=== PATIENT | female | born 1980 | race Caucasian/White ===

== ENCOUNTER → 2016-11-24 | Outpatient (CLI) | payer OTHER ==
[~2016-11-24] MED LIST: OPTIRAY 320 IV PRN
--- NOTE | 2016-11-24 18:19 | DIAGNOSTIC IMAGING REPORT ---
CT SCAN OF THE ABDOMEN AND PELVIS WITH IV CONTRAST CLINICAL HISTORY: Right lower quadrant abdominal pain. COMPARISON STUDY: No priors. TECHNIQUE: Following the IV administration of 120 cc of Optiray 320, CT scan of the abdomen and pelvis is performed from the lung bases to the proximal femora. Images are reviewed in the axial, sagittal, and coronal planes. IV contrast was administered without complication. Automated dose control exposure was utilized. A dose lowering technique was utilized adhering to the principles of ALARA. CT DOSE: 1984.20 mGy.cm FINDINGS: Lung bases: The heart is normal in size and without pericardial effusion. The lung bases are clear. Liver: The contrast-enhanced liver is enlarged, measuring 24 cm in length. The liver demonstrates diffusely diminished attenuation consistent with hepatic steatosis. There is no intrahepatic biliary ductal dilatation. The hepatic veins and portal veins are patent. Gallbladder: Surgically absent noting clips in the gallbladder fossa. Spleen: Enlarged, measuring 17 cm in length. Pancreas: Unremarkable. Adrenal glands: Unremarkable. Kidneys: The contrast enhanced kidneys are normal in size and without hydronephrosis. The kidneys enhance symmetrically. Abdominal vasculature: The abdominal aorta is normal in course and caliber. Bowel: The small bowel and colon are normal in course and caliber. The appendix is well visualized and normal. Peritoneum: There is no intraperitoneal free air or abdominal ascites. Lymphadenopathy: None. Pelvic viscera: The bladder, uterus, and adnexa are normal as visualized. Ovarian follicles are noted. Skeletal structures: No lytic or blastic lesions are seen. Sclerotic change is seen in the pubic symphysis. IMPRESSION: 1. There are no acute infectious or inflammatory findings in the abdomen or pelvis. 2. Hepatomegaly and hepatic steatosis. 3. Splenomegaly. 4. Additional findings as above. Electronically signed by: Bowen Saeed M.D. 11/24/2016 6:17 PM Dictated Date/Time: 11/24/2016 6:07 PM
== END | disposition home or self-care (01) ==
LOC: C.CTS 15:44
PROVIDERS: ATTEND Family Medicine
DX: R10.31 Right lower quadrant pain (principal)

== ENCOUNTER 2017-07-05 19:41 | Emergency (ER) | payer OTHER ==
[~2017-07-05] VITALS: Ht 175.3 cm; Wt 134.2 kg
[2017-07-05 19:44] VITALS: TEMP 37.2; Ht 175.3 cm; Wt 134.2 kg
[2017-07-05] MEDS ORDERED: ONDANSETRON INJ 2 MG/ML 2 ML VIAL IV STA (19:54)
[2017-07-05] MEDS ORDERED: SODIUM CHLORIDE 0.9% 1000ML 1,000 ML IV STA ×2 (19:54→20:01)
--- NOTE | 2017-07-05 20:02 | EMERGENCY ROOM VISIT NOTE ---
History Report prepared by Walt: Isabel Montaño Under the Supervision of: Dr. Jase Valenzuela M.D. First contact with patient: 19:49 Chief Complaint: OTHER COMPLAINT Stated Complaint: PAIN, BLOOD IN STOOL History of Present Illness The patient is a 36 year old female who presents to the Emergency Room with complaints of blood in her stool beginning at 1630 this afternoon. The patient reports that she had another episode of blood in her stool 45 minutes prior to arrival. The patient states that she called her doctor's office and was seen and had blood work ordered for tomorrow. She states that she was referred here from her doctor's office since she had 2 episodes. She states that she just did a 14 day course of levofloxacin for a sinus infection. She reports having nausea , fatigue, and headaches, but denies vomiting, fevers, and chills. The patient reports a history of a cholecystectomy at the age of 19 and states that since then she has not had normal stool. The patient reports that her menstrual period ended 5 days ago. She reports a history of hypertension. The patient reports that her cousin had colon cancer. Source of History: patient Onset: 1630 this afternoon Position: other (rectum) Quality: other (blood in stool) Associated Symptoms: + headache, + nausea, + fatigue, No fevers, No chills, No vomiting Review of Systems See HPI for pertinent positives and negatives. A total of ten systems were reviewed and were otherwise negative. Past Medical & Surgical Medical Problems: (1) Hypertension Surgical Problems: (1) History of cholecystectomy Family History FH: colon cancer Social History Smoking Status: Current Every Day Smoker Marital Status: Current/Historical Medications Scheduled Azelastine Hcl (Astepro), 2 SPRY RACHNA DAILY Fluticasone Propionate (Nasal) (Flonase Allergy Relief), 2 SPRAYS RACHNA QPM Losartan Potassium (Cozaar), 50 MG PO DAILY Montelukast Sodium (Singulair), 10 MG PO DAILY Ondasetron Odt (Zofran Odt), 4 MG SL Q6H Scheduled PRN Acetaminophen/Diphenhydramine (Tylenol Pm), 2 TAB PO HS PRN for Sleep Ibuprofen (Advil), 800 MG PO DAILY PRN for Pain or Fever Lorazepam (Ativan), 1 MG PO DAILY PRN for Anxiety Allergies Coded Allergies: No Known Allergies (Unverified , 07/05/17) Physical Exam Vital Signs Date Time Temp Pulse Resp B/P (MAP) Pulse Ox O2 Delivery O2 Flow Rate FiO2 07/05/17 22:42 94 20 160/113 97 07/05/17 21:35 101 20 162/105 98 Room Air 07/05/17 20:30 104 20 170/115 96 Room Air 07/05/17 19:44 37.2 112 20 217/122 98 Room Air Physical Exam GENERAL: Awake, alert, well-appearing, in no distress HENT: Normocephalic, atraumatic. Dry mucous membranes, otherwise oropharynx unremarkable. EYES: Normal conjunctiva. Sclera non-icteric. NECK: Supple. No nuchal rigidity. FROM. No JVD. RESPIRATORY: Clear to auscultation. CARDIAC: Regular rate, normal rhythm. Extremities warm and well perfused. Pulses equal. ABDOMEN: Soft, non-distended. No tenderness to palpation. No rebound or guarding. No masses. RECTAL: No external hemorrhoids. Brown stool, guaiac negative. MUSCULOSKELETAL: Chest examination reveals no tenderness. The back is symmetrical on inspection without obvious abnormality. There is no CVA tenderness to palpation. No joint edema. LOWER EXTREMITIES: Calves are equal size bilaterally and non-tender. No edema. No discoloration. NEURO: Normal sensorium. No sensory or motor deficits noted. SKIN: No rash or jaundice noted. Medical Decision & Procedures ER Provider Diagnostic Interpretation: Radiology results as stated below per my review and radiologist interpretation: CT SCAN OF THE ABDOMEN AND PELVIS WITH IV CONTRAST CLINICAL HISTORY: Generalized abdominal pain. Hematochezia. COMPARISON STUDY: Abdominal CT dated 11/24/2016. TECHNIQUE: Following the IV administration of 93 cc of Optiray 320, CT scan of the abdomen and pelvis is performed from the lung bases to the proximal femora. Images are reviewed in the axial, sagittal, and coronal planes. IV contrast was administered without complication. Automated dose control exposure was utilized. A dose lowering technique was utilized adhering to the principles of ALARA. CT DOSE: 2128.88 mGy.cm FINDINGS: Lung bases: The heart is normal in size and without pericardial effusion. The lung bases are clear. Liver: The contrast-enhanced liver is enlarged, measuring 24.2 cm in length. The liver demonstrates diffusely diminished attenuation consistent with hepatic steatosis. There is no intrahepatic biliary ductal dilatation. The hepatic veins and portal veins are patent. Gallbladder: Surgically absent noting clips in the gallbladder fossa. Spleen: Enlarged, measuring 17 cm in length. Pancreas: Unremarkable. Adrenal glands: Unremarkable. Kidneys: The contrast enhanced kidneys are normal in size and without hydronephrosis. The kidneys enhance symmetrically. Abdominal vasculature: The abdominal aorta is normal in course and caliber noting scattered foci of atherosclerotic calcification. Bowel: The small bowel and colon are normal in course and caliber. The appendix is well visualized and normal. Peritoneum: There is no intraperitoneal free air or abdominal ascites. Lymphadenopathy: None. Pelvic viscera: The bladder, uterus, and adnexa are normal as visualized. Ovarian follicles are noted. Skeletal structures: No lytic or blastic lesions are seen. Sclerotic change is noted in the pubic symphysis. IMPRESSION: 1. There are no acute infectious or inflammatory findings in the abdomen or pelvis. 2. Hepatomegaly and severe hepatic steatosis. 3. Splenomegaly. 4. Additional findings as above. Electronically signed by: Bowen Saeed M.D. 07/05/2017 9:13 PM Dictated Date/Time: 07/05/2017 9:09 PM Laboratory Results 07/05/17 20:12 Red Blood Count 4.89, Mean Corpuscular Volume 79.1, Mean Corpuscular Hemoglobin 26.4, Mean Corpuscular Hemoglobin Concent 33.3, Mean Platelet Volume 9.6, Neutrophils (%) (Auto) 60.7, Lymphocytes (%) (Auto) 30.4, Monocytes (%) (Auto) 5.8, Eosinophils (%) (Auto) 2.2, Basophils (%) (Auto) 0.4, Neutrophils # (Auto) 7.88, Lymphocytes # (Auto) 3.96, Monocytes # (Auto) 0.76, Eosinophils # (Auto) 0.29, Basophils # (Auto) 0.05 07/05/17 20:12 Test 07/05/17 20:12 07/05/17 20:25 White Blood Count 13.01 K/uL (4.8-10.8) Red Blood Count 4.89 M/uL (4.2-5.4) Hemoglobin 12.9 g/dL (12.0-16.0) Hematocrit 38.7 % (37-47) Mean Corpuscular Volume 79.1 fL (80-100) Mean Corpuscular Hemoglobin 26.4 pg (25-34) Mean Corpuscular Hemoglobin Concent 33.3 g/dl (32-36) Platelet Count 321 K/uL (130-400) Mean Platelet Volume 9.6 fL (7.4-10.4) Neutrophils (%) (Auto) 60.7 % Lymphocytes (%) (Auto) 30.4 % Monocytes (%) (Auto) 5.8 % Eosinophils (%) (Auto) 2.2 % Basophils (%) (Auto) 0.4 % Neutrophils # (Auto) 7.88 K/uL (1.4-6.5) Lymphocytes # (Auto) 3.96 K/uL (1.2-3.4) Monocytes # (Auto) 0.76 K/uL (0.11-0.59) Eosinophils # (Auto) 0.29 K/uL (0-0.5) Basophils # (Auto) 0.05 K/uL (0-0.2) RDW Standard Deviation 38.8 fL (36.4-46.3) RDW Coefficient of Variation 13.6 % (11.5-14.5) Immature Granulocyte % (Auto) 0.5 % Immature Granulocyte # (Auto) 0.07 K/uL (0.00-0.02) Erythrocyte Sedimentation Rate 35 mm/hr (0-21) Anion Gap 8.0 mmol/L (3-11) Est Creatinine Clear Calc Drug Dose 130.8 ml/min Estimated GFR () 99.3 Estimated GFR (Non- 85.7 BUN/Creatinine Ratio 12.8 (10-20) Calcium Level 8.8 mg/dl (8.5-10.1) Total Bilirubin 0.5 mg/dl (0.2-1) Direct Bilirubin < 0.1 mg/dl (0-0.2) Aspartate Amino Transf (AST/SGOT) 32 U/L (15-37) Alanine Aminotransferase (ALT/SGPT) 46 U/L (12-78) Alkaline Phosphatase 85 U/L (45-117) C-Reactive Protein 1.10 mg/dl (0-0.29) Total Protein 7.6 gm/dl (6.4-8.2) Albumin 3.6 gm/dl (3.4-5.0) Lipase 184 U/L (73-393) Urine Color YELLOW Urine Appearance CLOUDY (CLEAR) Urine pH 5.0 (4.5-7.5) Urine Specific [place] 1.026 (1.000-1.030) Urine Protein 3+ (NEG) Urine Glucose (UA) NEG (NEG) Urine Ketones NEG (NEG) Urine Occult Blood TRACE (NEG) Urine Nitrite NEG (NEG) Urine Bilirubin NEG (NEG) Urine Urobilinogen NEG (NEG) Urine Leukocyte Esterase NEG (NEG) Urine WBC (Auto) 1-5 /hpf (0-5) Urine RBC (Auto) 10-30 /hpf (0-4) Urine Hyaline Casts (Auto) 5-10 /lpf (0-5) Urine Epithelial Cells (Auto) >30 /lpf (0-5) Urine Bacteria (Auto) 1+ (NEG) Urine Test NEG (NEG) Laboratory results reviewed by me Medications Administered Medications (Trade) Dose Ordered Sig/Dusty Route Start Time Stop Time Status Last Admin Dose Admin Sodium Chloride 1,000 ml @ 999 mls/hr Q1H1M STAT IV 07/05/17 19:54 07/05/17 20:54 DC 07/05/17 20:26 999 MLS/HR Ondansetron HCl (Zofran Inj) 4 mg NOW STAT IV 07/05/17 19:54 07/05/17 19:57 DC 07/05/17 20:25 4 MG Sodium Chloride 1,000 ml @ 999 mls/hr Q1H1M STAT IV 07/05/17 20:01 07/05/17 21:01 DC 07/05/17 20:26 999 MLS/HR Acetaminophen (Tylenol Tab) 1,000 mg NOW STAT PO 07/05/17 21:24 07/05/17 21:25 DC 07/05/17 21:33 1,000 MG ED Course 1954: The patient was evaluated in room C10. A complete history and physical exam was performed. 2145: I checked on the patient and updated her on her results. 2229: I reevaluated the patient. Discussed results and discharge instructions: She verbalized understanding and agreement. The patient is ready for discharge. Medical Decision I reviewed the patient's past medical history, medications, and the nursing notes as described above. Differential diagnosis: Etiologies such as diverticulosis, AVM, coagulopathy, colitis, inflammatory bowel disease, malignancy, Yesy-Momin tear, esophagitis, peptic ulcer disease , variceal bleed, gastritis, epistaxis, fissure, hemorrhoids, as well as others were entertained. The patient is a 36-year-old woman who presents emergency department with red blood per rectum per hpi. On arrival, the patient is in no acute distress, afebrile, stable vital signs. Abdomen is soft nontender nondistended. Rectal exam demonstrates brown stool that is guaiac negative. WBC 13, ESR 35, CRP 1, HCT 38.7. Chemistry otherwise unremarkable. CT abdomen and pelvis unremarkable for any acute findings. Unclear etiology of the patient's report of red blood per rectum at this time. Plan for outpatient follow-up with GI. The patient is feeling improved after IV fluids. Findings and plan for follow- up reviewed with patient. Patient agreeable and d/c'd per discharge instructions. Medication Reconcilliation Current Medication List: was personally reviewed by me Blood Pressure Screening Patient's blood pressure: Elevated blood pressure Blood pressure disposition: Referred to PCP Impression Primary Impression: Hematochezia Scribe Attestation The scribe's documentation has been prepared under my direction and personally reviewed by me in its entirety. I confirm that the note above accurately reflects all work, treatment, procedures, and medical decision making performed by me. Departure Information Dispostion Home / Self-Care Prescriptions Ondasetron Odt (ZOFRAN ODT) 4 Mg Tab 4 MG SL Q6H for Nausea, #10 TAB Prov: Jase Valenzuela M.D. 07/05/17 Referrals No Doctor, Assigned (PCP) Jonathan Stevenson MD Forms HOME CARE DOCUMENTATION FORM, IMPORTANT VISIT INFORMATION, WORK / SCHOOL INSTRUCTIONS Patient Instructions ED Hematochezia Stable, My [facility] Additional Instructions Please follow up with your primary care physician as well as with gastroenterology, Dr. Stevenson, in the next 1-3 days for re-evaluation and possible colonoscopy. The cause of your symptoms is unclear at this time. Otherwise, your exam, lab results, and CT scan did not show signs of an emergent condition at this time. Acetaminophen for pain and fevers as needed. Zofran as needed for nausea. Drink plenty of fluids to ensure hydration. Return to the emergency department for worsening symptoms as described in the accompanying instructions.
[2017-07-05] MEDS ORDERED: ATV/1 PO (20:15)
[2017-07-05] MEDS ORDERED: MONT1TAB3 PO (20:15)
[2017-07-05] MEDS ORDERED: LOSA50TA6 PO (20:15)
[2017-07-05] MEDS ORDERED: FLUT0.15 NAE (20:15)
[2017-07-05] MEDS ORDERED: OPTIRAY 320 IV PRN (20:15)
[2017-07-05] MEDS ORDERED: AZEL0.15 NAE (20:18)
[2017-07-05] MEDS ORDERED: IBUP-1050 PO (20:19)
[2017-07-05] MEDS ORDERED: DIPH-437 PO (20:19)
[2017-07-05 20:23] LABS: BASO % 0.4 %; BASO ABS # 0.05 K/uL (0-0.2); EOS % 2.2 %; EOS ABS # 0.29 K/uL (0-0.5); HEMATOCRIT 38.7 % (37-47); HEMOGLOBIN 12.9 g/dL (12.0-16.0); IG# 0.07 K/uL (0.00-0.02); LYMPH % 30.4 %; LYMPH ABS # 3.96 K/uL (1.2-3.4); MEAN CELL VOLUME 79.1 fL (80-100); MEAN CORPUSCULAR HEMOGLOBIN 26.4 pg (25-34); MEAN CORPUSCULAR HGB CONC 33.3 g/dl (32-36); MEAN PLATELET VOLUME 9.6 fL (7.4-10.4); MONO % 5.8 %; MONO ABS # 0.76 K/uL (0.11-0.59); NEUT % 60.7 %; NEUT ABS # 7.88 K/uL (1.4-6.5); PLATELET COUNT 321 K/uL (130-400); RED CELL DISTRIBUTION WIDTH CV 13.6 % (11.5-14.5); RED CELL DISTRIBUTION WIDTH SD 38.8 fL (36.4-46.3); WHITE BLOOD COUNT 13.01 K/uL (4.8-10.8)
[2017-07-05 20:52] LABS: ALBUMIN 3.6 gm/dl (3.4-5.0); ALT/SGPT 46 U/L (12-78); BLOOD UREA NITROGEN 11 mg/dl (7-18); CALCIUM 8.8 mg/dl (8.5-10.1); CARBON DIOXIDE 25 mmol/L (21-32); CREATININE 0.86 mg/dl (0.60-1.20); GLUCOSE 146 mg/dl (70-99); LIPASE 184 U/L (73-393); POTASSIUM 3.5 mmol/L (3.5-5.1); SODIUM 136 mmol/L (136-145)
[2017-07-05 20:55] LABS: ALKALINE PHOSPHATASE 85 U/L (45-117); AST/SGOT 32 U/L (15-37); TOTAL PROTEIN 7.6 gm/dl (6.4-8.2)
--- NOTE | 2017-07-05 21:14 | DIAGNOSTIC IMAGING REPORT ---
CT SCAN OF THE ABDOMEN AND PELVIS WITH IV CONTRAST CLINICAL HISTORY: Generalized abdominal pain. Hematochezia. COMPARISON STUDY: Abdominal CT dated 11/24/2016. TECHNIQUE: Following the IV administration of 93 cc of Optiray 320, CT scan of the abdomen and pelvis is performed from the lung bases to the proximal femora. Images are reviewed in the axial, sagittal, and coronal planes. IV contrast was administered without complication. Automated dose control exposure was utilized. A dose lowering technique was utilized adhering to the principles of ALARA. CT DOSE: 2128.88 mGy.cm FINDINGS: Lung bases: The heart is normal in size and without pericardial effusion. The lung bases are clear. Liver: The contrast-enhanced liver is enlarged, measuring 24.2 cm in length. The liver demonstrates diffusely diminished attenuation consistent with hepatic steatosis. There is no intrahepatic biliary ductal dilatation. The hepatic veins and portal veins are patent. Gallbladder: Surgically absent noting clips in the gallbladder fossa. Spleen: Enlarged, measuring 17 cm in length. Pancreas: Unremarkable. Adrenal glands: Unremarkable. Kidneys: The contrast enhanced kidneys are normal in size and without hydronephrosis. The kidneys enhance symmetrically. Abdominal vasculature: The abdominal aorta is normal in course and caliber noting scattered foci of atherosclerotic calcification. Bowel: The small bowel and colon are normal in course and caliber. The appendix is well visualized and normal. Peritoneum: There is no intraperitoneal free air or abdominal ascites. Lymphadenopathy: None. Pelvic viscera: The bladder, uterus, and adnexa are normal as visualized. Ovarian follicles are noted. Skeletal structures: No lytic or blastic lesions are seen. Sclerotic change is noted in the pubic symphysis. IMPRESSION: 1. There are no acute infectious or inflammatory findings in the abdomen or pelvis. 2. Hepatomegaly and severe hepatic steatosis. 3. Splenomegaly. 4. Additional findings as above. Electronically signed by: Bowen Saeed M.D. 07/05/2017 9:13 PM Dictated Date/Time: 07/05/2017 9:09 PM
[2017-07-05] MEDS ORDERED: ACETAMINOPHEN 500 MG TAB PO STA (21:24)
[2017-07-05] MEDS ORDERED: ONDA4TAB10 SL (22:20)
[2017-07-05 22:42] VITALS: BP 160/113; PULSE 94; O2SAT 97
== END 2017-07-05 22:44 | disposition home or self-care (01) ==
LOC: C.EDB 19:43 → C.EDC 22:44
DX: K92.1 Melena (principal); I10 Essential (primary) hypertension; F17.200 Nicotine dependence, unspecified, uncomplicated; K76.0 Fatty (change of) liver, not elsewhere classified